=== PATIENT | male | born 1950 | race Caucasian/White ===

== ENCOUNTER 2016-07-22 21:07 | Observation (INO) | payer BC ==
[2016-07-22] MEDS ORDERED: PRAVASTATIN SOD20 M1 PO (22:16)
[2016-07-22] MEDS ORDERED: LUMIGAN2.5 M2 EACH EYE (22:16)
[2016-07-22] MEDS ORDERED: ISTALOL2.5 ML RIGHT EYE (22:16)
[2016-07-22] MEDS ORDERED: ASPIR 8181 M1 PO (22:17)
[2016-07-22 22:43] LABS: BASO % 0.7 % (0-2); BASO ABSOLUTE COUNT 0.1 tho/cmm (0.0-0.2); EOS % 2.9 % (0-7); EOSINOPHIL ABSOLUTE COUNT 0.2 tho/cmm (0.0-0.7); HCT-HEMATOCRIT 43.2 % (36.0-53.5); HGB-HEMOGLOBIN 15.2 gm/dl (13.5-17.0); IMMATURE GRANULOCYTES ABSOLUTE 0.01 tho/cmm (0-0.03); IMMATURE GRANULOCYTES PERCENT 0.1 % (0-0.3); LYMPH ABSOLUTE COUNT 0.9 tho/cmm (0.8-4.5); MCH (MEAN CORPUSCULAR HGB) 29.9 pg (28.0-32.0); MCHC MEAN CORPUSCULAR HGB CONC 35.2 % (32.0-36.0); MEAN PLATELET VOLUME 11.2 cmc (9.4-12.4); MONO % 5.9 % (0-12); MONOCYTE ABSOLUTE COUNT 0.5 tho/cmm (0.0-1.2); NEUTROPHILS % 78.4 % (40-80); PLATELET COUNT 125 tho/cmm (150-450); RED BLOOD COUNT 5.08 mil/cmm (4.40-5.70); RED CELL DISTRIBUTION WIDTH 12.5 % (12.4-16.4); WHITE BLOOD COUNT 7.7 tho/cmm (4.0-10.0)
[2016-07-22 22:55] LABS: ANION GAP 14 mmol/L (0-20); BLOOD UREA NITROGEN 18 mg/dl (6-24); CALCIUM 8.9 mg/dl (8.5-10.5); CARBON DIOXIDE-VENOUS 25 mmol/L (22-32); CHLORIDE 101 mmol/l (96-110); CREATININE 1.38 mg/dl (0.60-1.30); GLUCOSE 173 mg/dL (70-110); POTASSIUM 3.8 mmol/L (3.7-5.1); SODIUM 136 mmol/L (135-145); eGFR VALUE FOR BLACK 62 mL/Min
[2016-07-23 01:52] LABS: URINE LEUKOCYTE ESTERASE NEGATIVE (NEG); URINE PH 6.5 (5.0-8.0); URINE PROTEIN NEGATIVE (NEG)
[2016-07-23 01:53] LABS: URINE APPEARANCE HAZY; URINE BILIRUBIN NEGATIVE (NEG); URINE BLOOD MODERATE (NEG); URINE COLOR YELLOW; URINE GLUCOSE (UA) MODERATE (NEG); URINE KETONE MODERATE (NEG); URINE NITRITE NEGATIVE (NEG)
[2016-07-23 02:02] LABS: URINE BACTERIA 1+; URINE EPITHELIAL CELLS 0-2 /[HPF] (0-10); URINE WBC RARE /[HPF] (0-5)
[2016-07-23 06:31] LABS: BASO % 0.4 % (0-2); EOS % 0.2 % (0-7); HCT-HEMATOCRIT 38.6 % (36.0-53.5); HGB-HEMOGLOBIN 13.3 gm/dl (13.5-17.0); IMMATURE GRANULOCYTES ABSOLUTE 0.01 tho/cmm (0-0.03); IMMATURE GRANULOCYTES PERCENT 0.1 % (0-0.3); LYMPH % 6.9 % (20-45); LYMPH ABSOLUTE COUNT 0.7 tho/cmm (0.8-4.5); MCH (MEAN CORPUSCULAR HGB) 29.5 pg (28.0-32.0); MCHC MEAN CORPUSCULAR HGB CONC 34.5 % (32.0-36.0); MCV (MEAN CELL VOLUME) 85.6 fl (82.0-96.0); MEAN PLATELET VOLUME 11.1 cmc (9.4-12.4); MONO % 4.9 % (0-12); MONOCYTE ABSOLUTE COUNT 0.5 tho/cmm (0.0-1.2); NEUTROPHIL ABSOLUTE COUNT 8.5 tho/cmm (1.6-8.0); NEUTROPHIL-AUTOMATED 8.5 tho/cmm (1.6-8.0); NEUTROPHILS % 87.5 % (40-80); PLATELET COUNT 114 tho/cmm (150-450); RED BLOOD COUNT 4.51 mil/cmm (4.40-5.70); RED CELL DISTRIBUTION WIDTH 12.6 % (12.4-16.4); WHITE BLOOD COUNT 9.7 tho/cmm (4.0-10.0)
[2016-07-23 06:40] LABS: BLOOD UREA NITROGEN 19 mg/dl (6-24); CALCIUM 7.9 mg/dl (8.5-10.5); CARBON DIOXIDE-VENOUS 27 mmol/L (22-32); CHLORIDE 104 mmol/l (96-110); GLUCOSE 132 mg/dL (70-110); SODIUM 137 mmol/L (135-145); eGFR VALUE FOR BLACK 46 mL/Min
[2016-07-23 06:49] LABS: ANION GAP 11 mmol/L (0-20); CREATININE 1.78 mg/dl (0.60-1.30); POTASSIUM 4.8 mmol/L (3.7-5.1)
[2016-07-23] MEDS ORDERED: FLOMAX0.4 M1 PO (11:28)
[2016-07-24 05:57] LABS: ANION GAP 10 mmol/L (0-20); BLOOD UREA NITROGEN 15 mg/dl (6-24); CALCIUM 7.3 mg/dl (8.5-10.5); CARBON DIOXIDE-VENOUS 27 mmol/L (22-32); CHLORIDE 106 mmol/l (96-110); GLUCOSE 112 mg/dL (70-110); SODIUM 139 mmol/L (135-145); eGFR VALUE FOR BLACK 61 mL/Min
[2016-07-24 06:01] LABS: POTASSIUM 3.9 mmol/L (3.7-5.1)
[2016-07-24] MEDS ORDERED: PERCOCET 5-3251 EACH PO (10:29)
[2016-08-13] MEDS ORDERED: CPAP (11:28)
== END 2016-07-24 12:00 ==
LOC: EDMED 21:07 → 5WE 07-23 01:34
PROVIDERS: Emergency Medicine; Internal Medicine; ADMIT Hospitalist
PROC: 4A0D7LZ Measurement of Urinary Volume, Via Natural or Artificial Opening (ICD-10-PCS; principal; 2016-07-24)
DX: N20.1 Calculus of ureter (principal); N17.9 Acute kidney failure, unspecified; E78.5 Hyperlipidemia, unspecified; Z79.82 Long term (current) use of aspirin; Z79.899 Other long term (current) drug therapy; Z88.8 Allergy status to other drugs, medicaments and biological substances; Z85.46 Personal history of malignant neoplasm of prostate; Z92.21 Personal history of antineoplastic chemotherapy; Z92.3 Personal history of irradiation; Z87.442 Personal history of urinary calculi; Z87.891 Personal history of nicotine dependence; Z90.79 Acquired absence of other genital organ(s); Z90.89 Acquired absence of other organs; Z98.41 Cataract extraction status, right eye; Z98.42 Cataract extraction status, left eye; Z96.652 Presence of left artificial knee joint; Z98.890 Other specified postprocedural states
CPT/HCPCS: C9113; G0378; J0696; J1170; J1885; J2270; J2405; J7030

== ENCOUNTER 2016-07-27 05:09 | Inpatient (IN) | payer BC ==
[~2016-07-27 05:09] MED LIST: ASPIR 8181 M1 PO; FLOMAX0.4 M1 PO; ISTALOL2.5 ML RIGHT EYE; LUMIGAN2.5 M2 EACH EYE; PERCOCET 5-3251 EACH PO; PRAVASTATIN SOD20 M1 PO
[2016-07-27 05:44] LABS: BASO % 0.3 % (0-2); EOS % 0.3 % (0-7); HCT-HEMATOCRIT 40.8 % (36.0-53.5); HGB-HEMOGLOBIN 14.4 gm/dl (13.5-17.0); IMMATURE GRANULOCYTES ABSOLUTE 0.01 tho/cmm (0-0.03); IMMATURE GRANULOCYTES PERCENT 0.1 % (0-0.3); LYMPH % 4.9 % (20-45); LYMPH ABSOLUTE COUNT 0.4 tho/cmm (0.8-4.5); MCH (MEAN CORPUSCULAR HGB) 29.9 pg (28.0-32.0); MCHC MEAN CORPUSCULAR HGB CONC 35.3 % (32.0-36.0); MCV (MEAN CELL VOLUME) 84.6 fl (82.0-96.0); MEAN PLATELET VOLUME 11.1 cmc (9.4-12.4); MONO % 5.9 % (0-12); MONOCYTE ABSOLUTE COUNT 0.5 tho/cmm (0.0-1.2); NEUTROPHIL ABSOLUTE COUNT 7.8 tho/cmm (1.6-8.0); NEUTROPHIL-AUTOMATED 7.8 tho/cmm (1.6-8.0); NEUTROPHILS % 88.5 % (40-80); PLATELET COUNT 128 tho/cmm (150-450); RED BLOOD COUNT 4.82 mil/cmm (4.40-5.70); RED CELL DISTRIBUTION WIDTH 12.5 % (12.4-16.4); WHITE BLOOD COUNT 8.8 tho/cmm (4.0-10.0)
[2016-07-27 06:24] LABS: ANION GAP 15 mmol/L (0-20); BLOOD UREA NITROGEN 16 mg/dl (6-24); CALCIUM 9.1 mg/dl (8.5-10.5); CARBON DIOXIDE-VENOUS 24 mmol/L (22-32); CHLORIDE 105 mmol/l (96-110); CREATININE 1.45 mg/dl (0.60-1.30); GLUCOSE 157 mg/dL (70-110); POTASSIUM 3.8 mmol/L (3.7-5.1); SODIUM 140 mmol/L (135-145); eGFR VALUE FOR BLACK 59 mL/Min
[2016-07-27 07:27] LABS: URINE BILIRUBIN NEGATIVE (NEG); URINE BLOOD SMALL (NEG); URINE GLUCOSE (UA) NEGATIVE (NEG); URINE KETONE SMALL (NEG); URINE LEUKOCYTE ESTERASE NEGATIVE (NEG); URINE NITRITE NEGATIVE (NEG); URINE PROTEIN MODERATE (NEG)
[2016-07-27 07:29] LABS: URINE APPEARANCE CLEAR; URINE COLOR YELLOW
[2016-07-27 07:56] LABS: URINE MUCUS 1+
[2016-07-27 07:57] LABS: URINE EPITHELIAL CELLS 0-1 /[HPF] (0-10)
[2016-08-13] MEDS ORDERED: CPAP (11:28)
== END 2016-07-28 10:55 | DRG 694 ==
LOC: EDMED 05:09 → EMR2 07:40 → 5WE 10:10 → PACU 14:08 → 5WE 14:52
PROVIDERS: Emergency Medicine; ADMIT Urology
PROC: 0T778DZ Dilation of Left Ureter with Intraluminal Device, Via Natural or Artificial Opening Endoscopic (ICD-10-PCS; principal; 2016-07-27)
DX: N20.1 Calculus of ureter (principal); Z88.8 Allergy status to other drugs, medicaments and biological substances; Z79.82 Long term (current) use of aspirin
CPT/HCPCS: C1769; C2617; J1170; J1956; J2270; J2405; J7030

== ENCOUNTER 2016-08-14 05:27 | Day surgery (SDC) | payer BC ==
[~2016-08-14 05:27] MED LIST changes: +CPAP
[2016-08-14 06:52] LABS: PROTHROMBIN TIME 11.3 SECONDS (9.0-13.6)
== END 2016-08-14 11:30 ==
LOC: SHSB 05:27 → ORW 07:20 → SHSB 09:05
PROVIDERS: Urology
PROC: 0T778DZ Dilation of Left Ureter with Intraluminal Device, Via Natural or Artificial Opening Endoscopic (ICD-10-PCS; principal; 2016-08-14)
PROC: 0TC78ZZ Extirpation of Matter from Left Ureter, Via Natural or Artificial Opening Endoscopic (ICD-10-PCS; 2016-08-14)
DX: N20.1 Calculus of ureter (principal); N32.0 Bladder-neck obstruction; E66.9 Obesity, unspecified; E78.2 Mixed hyperlipidemia; M19.90 Unspecified osteoarthritis, unspecified site; G47.33 Obstructive sleep apnea (adult) (pediatric); Z79.82 Long term (current) use of aspirin; Z79.899 Other long term (current) drug therapy; Z88.8 Allergy status to other drugs, medicaments and biological substances; Z87.891 Personal history of nicotine dependence; Z85.46 Personal history of malignant neoplasm of prostate; Z90.49 Acquired absence of other specified parts of digestive tract; Z90.89 Acquired absence of other organs; Z98.41 Cataract extraction status, right eye; Z98.42 Cataract extraction status, left eye; Z96.1 Presence of intraocular lens; Z98.890 Other specified postprocedural states
CPT/HCPCS: C1726; C1769; C2617; J1956; Q9967